=== PATIENT | female | born 1995 | race Caucasian/White ===

== ENCOUNTER → 2025-08-25 08:41 | Outpatient (REF) | payer OTHER, SELFPAY | LOC: PNTC 08:41 | PROVIDERS: ATTENDING PHYSICIAN Obstetrics & Gynecology | DX: O36.80X0 Pregnancy with inconclusive fetal viability, not applicable or unspecified (principal); Z34.81 Encounter for supervision of other normal pregnancy, first trimester | CPT/HCPCS: 76801 ==

== ENCOUNTER → 2025-09-20 15:00 | Outpatient (REF) | payer OTHER, SELFPAY | LOC: RAD 15:00 | PROVIDERS: ATTENDING PHYSICIAN Obstetrics & Gynecology | DX: O26.859 Spotting complicating pregnancy, unspecified trimester (principal) | CPT/HCPCS: 76830; 76856 ==

== ENCOUNTER → 2025-09-27 14:55 | Outpatient (REF) | payer OTHER, SELFPAY | LOC: PNTC 14:55 | PROVIDERS: ATTENDING PHYSICIAN Obstetrics & Gynecology | DX: Z36.82 Encounter for antenatal screening for nuchal translucency (principal); Z36.89 Encounter for other specified antenatal screening | CPT/HCPCS: 36415; 76801; 76813 ==

== ENCOUNTER → 2025-10-19 07:15 | Outpatient (REF) | payer OTHER, SELFPAY | LOC: PNTC 07:15 | PROVIDERS: ATTENDING PHYSICIAN Obstetrics & Gynecology | DX: O99.213 Obesity complicating pregnancy, third trimester (principal) | CPT/HCPCS: 76805 ==